=== PATIENT | male | born 1950 | race Two or more races ===

== ENCOUNTER 2020-02-29 17:48 | Emergency (ER) | payer MEDICAID ==
[~2020-02-29] VITALS: Ht 165.1 cm; Wt 63.6 kg
[2020-02-29 18:26] VITALS: BP 159/85
[2020-02-29] MEDS ORDERED: METOCLOPRAMIDE HCL 10MG TABLET PO ONE (19:30)
== END 2020-02-29 20:36 | disposition home or self-care (01) ==
LOC: ER 17:48
DX: R06.6 Hiccough (principal)
CPT/HCPCS: 99283; J8597